=== PATIENT | female | born 1950 | race Caucasian/White ===

== ENCOUNTER 2018-07-18 20:18 | Emergency (ER) | payer MEDICARE ==
[~2018-07-18] VITALS: Ht 167.6 cm; Wt 73.5 kg
[2018-07-18 21:37] VITALS: BP 176/90
== END 2018-07-18 21:30 | disposition home or self-care (01) ==
LOC: FSED 20:18
DX: S00.532A Contusion of oral cavity, initial encounter (principal); W22.8XXA Striking against or struck by other objects, initial encounter; Y92.008 Other place in unspecified non-institutional (private) residence as the place of occurrence of the external cause; I10 Essential (primary) hypertension; E03.9 Hypothyroidism, unspecified
CPT/HCPCS: 99282